=== PATIENT | male | born 1950 | race Caucasian/White ===

== ENCOUNTER 2023-01-16 13:27 | Outpatient (CLI) | payer SELFPAY | END 2023-01-16 13:28 | disposition home or self-care (01) | LOC: AMB 01-25 14:39 | PROVIDERS: Visit Provider Family Medicine | DX: R42 Dizziness and giddiness (principal) | CPT/HCPCS: A0425; A0427 ==

== ENCOUNTER 2023-01-26 19:29 | Outpatient (CLI) | payer MEDICARE, SELFPAY | END 2023-01-26 19:30 | disposition home or self-care (01) | LOC: AMB 01-29 12:01 | PROVIDERS: Visit Provider Student in an Organized Health Care Education/Training Program | DX: R42 Dizziness and giddiness (principal) | CPT/HCPCS: A0425; A0427 ==

== ENCOUNTER 2023-01-26 20:04 | Emergency (ER) | payer MEDICARE, SELFPAY ==
[2023-01-26] VITALS (14 sets, daily range): BP systolic 133–164; BP diastolic 81–106; PULSE 67–79; RESP 18; TEMP 36.3; O2SAT 92–94; BMI 29.1
[2023-01-26 21:04] LABS: Basophils Absolute Auto 0.05 K/uL (0.00-0.30); Basophils Percent Auto 0.6 % (0.0-3.0); Eosinophils Absolute Auto 0.28 K/uL (0.00-0.50); Eosinophils Percent Auto 3.4 % (0.0-7.0); Hematocrit 46.3 % (37.0-53.0); Hemoglobin* 15.5 gm/dL (13.5-17.5); Lymphocytes Percent Auto 19.6 % (20-44); Mean Corpuscular HGB Conc 34 gm/dL (32-36); Mean Corpuscular Hemoglobin 31 pg (26-34); Mean Corpuscular Volume 92 fL (80-100); Monocytes Percent Auto 10.3 % (0.0-11.0); Neutrophils Absolute Auto 5.36 K/uL (1.7-7.0); Neutrophils Percent Auto 66.1 % (42.0-72.0); Platelet Count* 290 K/uL (140-440); RDW Coefficient of Variation % 12.6 % (11.5-15.5); Red Blood Count 5.04 m/uL (4.30-5.90); White Blood Count* 8.12 K/uL (4.50-11.00)
[2023-01-26 21:19] LABS: Albumin* 4.4 g/dL (3.3-5.0); Chloride* 101 mmol/L (96-114); Potassium* 3.6 mmol/L (3.6-5.1); Sodium* 137 mmol/L (135-149)
[2023-01-26 21:21] LABS: Anion Gap 10 mEq/L (7-15); Bilirubin Total* 0.6 mg/dL (0.1-1.5); Carbon Dioxide* 26 mmol/L (20-32); Creatinine* 0.7 mg/dL (0.5-1.5); Est. Creatinine Clearance* 71.12; Estimated Glomerular Filt Rate 98 ml/min
[2023-01-26 21:22] LABS: Alanine Aminotransferase* 70 U/L (4-50); Alkaline Phosphatase* 50 U/L (40-150); Aspartate Amino Transferase* 47 U/L (12-35); Blood Urea Nitrogen* 21 mg/dL (7-30); Glucose* 199 mg/dL (60-115); Magnesium* 2.1 mg/dL (1.5-2.6); Total Protein* 7.4 g/dL (6.0-8.3)
[2023-01-26 21:23] LABS: D Dimer Quantitative* 3.41 ug/ml (0.00-0.50)
--- NOTE | 2023-01-26 21:34 | CRLHL7_ITS ---
For Patients: As a result of the Century Cures Act, medical imaging exams and procedure reports are released immediately into your electronic medical record. You may view this report before your referring provider. If you have questions, please contact your health care provider. INDICATION: .elevated D-dimer, shortness of breath, dizziness spells today and on 01/16/23 TECHNIQUE: CT chest PE was acquired with 95 cc Isovue 370 IV contrast. COMPARISON: None FINDINGS: Pulmonary Arteries: Suboptimal contrast bolus timing acquisition. No discrete large central pulmonary embolus. No pulmonary hypertension or right ventricular strain. Heart and Mediastinum: The visualized portions of the thyroid are normal. No axillary or supraclavicular lymphadenopathy. No mediastinal, hilar or retrocrural lymphadenopathy. Normal heart size. Normal caliber aorta. Atherosclerotic calcifications. Lungs and Airways: Trace biapical subpleural fibrosis. No mass or consolidation. A few scattered 2-3 millimeter indeterminate pulmonary nodules. No endoluminal lesion. Pleura: The pleural spaces are normal. Abdomen: The visualized upper abdominal organs are unremarkable. Bones and soft tissues: The skeletal structures and soft tissues of the chest wall are unremarkable. IMPRESSION: 1. Suboptimal contrast bolus timing acquisition. No discrete large central pulmonary embolus. 2. No intrathoracic mass or consolidation. 3. A few scattered 2-3 millimeter indeterminate pulmonary nodules. If the patient is considered low risk for primary lung cancer, these do not require additional follow-up. If the patient is considered high-risk for primary lung cancer, consider optional unenhanced chest CT in 12 months to document stability and to assess for underlying malignant potential per Fleischner society guidelines. Please note that all CT scans at this facility use dose modulation, iterative reconstruction, and/or weight-based dosing when appropriate to reduce radiation dose to as low as reasonably achievable. Dictated by Jt Barnes MD @ 01/26/2023 11:12:06 PM (Electronically Signed)
[2023-01-26 22:05] LABS: Troponin I* < 0.01 ng/mL (0.01-0.04)
[2023-01-26 22:06] LABS: Slide Review Reflex No
--- NOTE | 2023-01-26 22:21 | ED.GENADULT ---
HPI - General Adult General Date Seen: 01/26/23 Chief complaint: Dizziness/Vertigo Stated complaint: Vertigo Time Seen by Provider: 01/26/23 20:07 Source: patient Mode of arrival: ambulatory Limitations: no limitations History of Present Illness HPI narrative: Patient is 72 years male presented emergency department for dizziness. He states prior to arrival he had a 45 minute episode of dizziness. Says the room was spinning in was getting worse and worse. He states he felt so dizzy do not think he could stand up. When it occurred he was sitting in chair eating his meal. EMS arrived and they gave him oxygen by nasal cannula because the states that his oxygen saturation was low. Shortly after receive oxygen via nasal cannula symptoms resolved he states he feels completely back to normal at this time. He had no associated lightheadedness, chest pain, shortness of breath, ear pain, hearing changes, weakness, numbness. Of note about 10 days ago he had similar symptoms lasted also for 45 minutes. He states when this occurred he was standing in the doorway and use getting some dizzy he laid down. He states again after he was given oxygen the symptoms resolved. At that time he was at [facility] and he had a head CTA, neck CTA, head MRI, multiple lab work done, chest x-ray, all done and was discharged home no supposed to follow-up with neurology. He states he is trying to set up appointments but was unable to after calling Multiple times. He has states he had similar symptoms about 12 years ago that also resolved on their own. Related Data Home Medications Medication Instructions Recorded Confirmed amlodipine 5 mg tablet 5 mg PO DAILY 01/26/23 01/26/23 aspirin 81 mg capsule 81 mg PO DAILY 01/26/23 01/26/23 hydrochlorothiazide 25 mg tablet 25 mg PO DAILY 01/26/23 01/26/23 lisinopril 20 mg tablet 20 mg PO BID 01/26/23 01/26/23 [id number]-FA-vit K PO 01/26/23 omega-3 fatty acids-fish oil PO 01/26/23 Allergies Allergy/AdvReac Type Severity Reaction Status Date / Time No Known Drug Allergies Allergy Verified 01/26/23 20:19 Review of Systems Status of ROS: Reports: 10 or more systems reviewed and unremarkable except as noted in History and below PFSH PFSH Social History Smoking Status: Current every day smoker What tobacco products do you use: cigarettes Smoking packs per day: 0.5 Smoking cigarettes per day: 10.0 Years smoked: 50 Smoking pack-years: 25.00 Do you use any of these nicotine containing products: None Second hand tobacco smoke exposure: No How often do you have a drink containing alcohol: never How often do you have six or more drinks on one occasion: Never AUDIT-C Alcohol total score: 0 Non-prescribed substance use: denies use service: Yes Exam Narrative: Exam Narrative: Const: Well-nourished, Well-developed, in mild distress Eyes: PERRL, no conjunctival injection, and symmetrical lids ENMT: Atraumatic external nose and ears. Moist mucous membranes. Neck: Symmetric, trachea midline, No thyromegaly. CVS: RRR, No murmurs or gallops. Peripheral pulses 2+ and equal in all extremities RESP: Unlabored respiratory effort. Clear to auscultation bilaterally. GI: Nontender/Nondistended, No rebound or guarding. MSK:Extremities w/o deformity, Normal Active ROM Skin: Warm, Dry. No rashes or lesions. Neuro: Normal Muscle tone, No focal neurological deficits. Psych: Awake, Alert, & Oriented x3. Appropriate mood and affect. Const: Vital Signs, click to edit/add: Vital Signs - 24 hr 01/26/23 20:11 01/26/23 21:00 01/26/23 21:35 Temperature 97.4 F L Pulse Rate 77 Pulse Rate [Pulse Oximeter] 79 74 Respiratory Rate 18 Blood Pressure Blood Pressure [Ri ght Upper Arm] 164/95 H 163/94 H Pulse Oximetry 93 94 94 Oxygen Delivery Me thod Room Air Room Air 01/26/23 21:45 01/26/23 22:07 01/26/23 22:15 Temperature Pulse Rate 74 76 75 Pulse Rate [Pulse Oximeter] Respiratory Rate Blood Pressure Blood Pressure [Ri ght Upper Arm] Pulse Oximetry 93 93 94 Oxygen Delivery Me thod 01/26/23 22:30 01/26/23 22:32 Temperature Pulse Rate 74 72 Pulse Rate [Pulse Oximeter] Respiratory Rate Blood Pressure 144/82 H Blood Pressure [Ri ght Upper Arm] Pulse Oximetry 93 94 Oxygen Delivery Me thod Course Vital Signs Vital signs: Initial Vital Signs Temperature 97.4 F L 01/26/23 20:11 Temperature Source Temporal Artery Scan 01/26/23 20:11 Pulse Rate 79 01/26/23 20:11 Respiratory Rate 18 01/26/23 20:11 Blood Pressure 164/95 H 01/26/23 20:11 Blood Pressure Mean 118 H 01/26/23 20:11 Blood Pressure Position Supine 01/26/23 20:11 Pulse Oximetry 93 01/26/23 20:11 Oxygen Delivery Method Room Air 01/26/23 20:11 Vital Signs Temperature 97.4 F L 01/26/23 20:11 Pulse Rate 79 01/26/23 20:11 Respiratory Rate 18 01/26/23 20:11 Blood Pressure 164/95 H 01/26/23 20:11 Pulse Oximetry 93 01/26/23 20:11 Oxygen Delivery Method Room Air 01/26/23 20:11 Temperature 97.4 F L 01/26/23 20:11 Pulse Rate 72 01/26/23 22:32 Respiratory Rate 18 01/26/23 20:11 Blood Pressure 144/82 H 01/26/23 22:32 Pulse Oximetry 94 01/26/23 22:32 Oxygen Delivery Method Room Air 01/26/23 21:00 Medical Decision Making MDM Narrative Medical decision making narrative: Patient is 70-year-old male presenting was working for an episode of dizziness. Dizziness resolved after he was given oxygen by EMS. Asked about 45 minutes. Had similar symptoms for 10 days ago an outside hospital and had a full workup done including MRI is discharged home. This time since symptoms are similar not believe is necessary to repeat head imaging. His unlikely be a stroke since symptoms resolved with oxygen. Is unclear what his exact cause of the symptoms though. It might be way to poor oxygenation but he is now satting 95% on room air and I cannot think of any obvious causes that would improve let quickly with nasal cannula oxygen supplementation. We will order a D-dimer check for signs of pulmonary embolism. Also ordered troponin, magnesium, CBC, CMP, TSH and an EKG. EKG returned showing no concerning abnormalities. Lab work returns showing a D-dimer 3.[address] of the chest was ordered. CBC and CMP showed no concerning abnormalities. Troponin is within normal limits along with a TSH. Patient's CTA returned showing no signs of a pulmonary embolism. There were pulmonary nodules seen in the spoke to the patient's about this they state they are already aware of them. I am not sure why this patient has signed episode of vertigo that went away when he was administered ox and but symptoms have resolved and he will be discharged home. Looking in his paperwork from [facility] they did recommend neurology follow-up so I gave him the contact information for the attending neurologist both ovaries see the Neurology fellow at the time of his visit. I informed the patient follow-up with them and he agrees with this plan. Lab Data Labs: Lab Results 01/26/23 01/26/23 Range/Units 20:40 20:55 WBC 8.12 (4.50-11.00) K/uL RBC 5.04 (4.30-5.90) m/uL Hgb 15.5 (13.5-17.5) gm/dL Hct 46.3 (37.0-53.0) % MCV 92 (80-100) fL MCH 31 (26-34) pg MCHC 34 (32-36) gm/dL RDW Coeff of Dasha 12.6 (11.5-15.5) % Plt Count 290 (140-440) K/uL Neut % (Auto) 66.1 (42.0-72.0) % Lymph % (Auto) 19.6 L (20-44) % [place] % (Auto) 10.3 (0.0-11.0) % Eos % (Auto) 3.4 (0.0-7.0) % Baso % (Auto) 0.6 (0.0-3.0) % Neut # (Auto) 5.36 (1.7-7.0) K/uL Lymph # (Auto) 1.60 (0.90-2.90) K/uL [place] # (Auto) 0.80 (0.00-0.90) K/UL Eos # (Auto) 0.28 (0.00-0.50) K/uL Baso # (Auto) 0.05 (0.00-0.30) K/uL Abs Immat Gran (auto) 0.00 (0.00-0.30) K/uL Imm/Tot Granulo (auto) 0.0 % D-Dimer Quant (PE/DVT) 3.41 H (0.00-0.50) ug/ml Sodium 137 (135-149) mmol/L Potassium 3.6 (3.6-5.1) mmol/L Chloride 101 (96-114) mmol/L Carbon Dioxide 26 (20-32) mmol/L Anion Gap 10 (7-15) mEq/L BUN 21 (7-30) mg/dL Creatinine 0.7 (0.5-1.5) mg/dL Estimated Creat Clear 71.12 Estimated GFR 98 ml/min Glucose 199 H (60-115) mg/dL Magnesium 2.1 (1.5-2.6) mg/dL Total Bilirubin 0.6 (0.1-1.5) mg/dL AST 47 H (12-35) U/L ALT 70 H (4-50) U/L Alkaline Phosphatase 50 (40-150) U/L Troponin I < 0.01 L (0.01-0.04) ng/mL Total Protein 7.4 (6.0-8.3) g/dL Albumin 4.4 (3.3-5.0) g/dL TSH 0.726 (0.270-4.200) uIU/mL Imaging Data CTA chest: Radiologist's impression: INDICATION: .elevated D-dimer, shortness of breath, dizziness spells today and on 01/16/23 TECHNIQUE: CT chest PE was acquired with 95 cc Isovue 370 IV contrast. COMPARISON: None FINDINGS: Pulmonary Arteries: Suboptimal contrast bolus timing acquisition. No discrete large central pulmonary embolus. No pulmonary hypertension or right ventricular strain. Heart and Mediastinum: The visualized portions of the thyroid are normal. No axillary or supraclavicular lymphadenopathy. No mediastinal, hilar or retrocrural lymphadenopathy. Normal heart size. Normal caliber aorta. Atherosclerotic calcifications. Lungs and Airways: Trace biapical subpleural fibrosis. No mass or consolidation. A few scattered 2-3 millimeter indeterminate pulmonary nodules. No endoluminal lesion. Pleura: The pleural spaces are normal. Abdomen: The visualized upper abdominal organs are unremarkable. Bones and soft tissues: The skeletal structures and soft tissues of the chest wall are unremarkable. IMPRESSION: 1. Suboptimal contrast bolus timing acquisition. No discrete large central pulmonary embolus. 2. No intrathoracic mass or consolidation. 3. A few scattered 2-3 millimeter indeterminate pulmonary nodules. If the patient is considered low risk for primary lung cancer, these do not require additional follow-up. If the patient is considered high-risk for primary lung cancer, consider optional unenhanced chest CT in 12 months to document stability and to assess for underlying malignant potential per Fleischner society guidelines. Please note that all CT scans at this facility use dose modulation, iterative reconstruction, and/or weight-based dosing when appropriate to reduce radiation dose to as low as reasonably achievable. Dictated by Jt Barnes MD @ 01/26/2023 11:12:06 PM ECG Data Attestation: I personally reviewed and interpreted this ECG as follows: Prior ECG tracings: not available for review Interpretation: Normal sinus rhythm the rate 75 beats per minute, normal intervals, normal axis, no ST or T-wave abnormalities Discharge Plan Discharge Clinical Impression: Benign paroxysmal positional vertigo Qualifiers: Laterality: unspecified laterality Qualified Code(s): H81.10 - Benign paroxysmal vertigo, unspecified ear Patient Disposition: Home, Self-Care Condition: Stable Instructions: Vertigo (DC) Additional Instructions: April today showed no signs of were be causing your symptoms. We did check you for a pulmonary embolism (blood clot in lung) and did not find any. Your CTA did show pulmonary nodules that you state your early aware of. When you were seen at [facility] the spoke to Neurology some I gave you the clinic for the attending physician at that time for outpatient Neurology follow-up. Follow-up with Dr. Liana Cedeño MD [facility] - [address], [address] [place] [address],?[id number] nmp:[phone] Prescriptions: No Action lisinopril 20 mg tablet 20 mg PO BID amlodipine 5 mg tablet 5 mg PO DAILY hydrochlorothiazide 25 mg tablet 25 mg PO DAILY aspirin 81 mg capsule 81 mg PO DAILY dctffzewzsng-efm-[id number]-FA-vit K [Adults Multivitamin] PO omega-3 fatty acids-fish oil [Fish Oil Extra Strength] PO Follow Up/Referrals: Provider,Not a Local [Primary Care Provider] - Stand Alone Forms: MyHealth Info Instructions
[2023-01-26 22:26] LABS: TSH With Reflex to FT4* 0.726 uIU/mL (0.270-4.200)
--- NOTE | 2023-01-27 17:05 | ED.NURSE ---
Patient called wondering how he can get access to his records from yesterdays' visit. Patient has discharge instructions, informed the last page details how to sign up for stylemarks to access results. Patient will do this, denies further questions/concerns.
[2023-01-29 20:05] LABS: Calcium* 9.1 mg/dL (8.4-10.6)
== END 2023-01-26 23:47 | disposition home or self-care (01) ==
PROVIDERS: Emergency Provider Student in an Organized Health Care Education/Training Program
DX: H81.10 Benign paroxysmal vertigo, unspecified ear (principal); Z13.29 Encounter for screening for other suspected endocrine disorder
CPT/HCPCS: 36415; 71275; 80053; 83735; 84443; 84484; 85025; 85379; 93005; 99283; 99284; Q9967